=== PATIENT | male | born 1985 | race Caucasian/White ===

== ENCOUNTER 2016-07-30 04:08 | Emergency (ER) | payer OTHER ==
[2016-07-30 04:15] VITALS: TEMP 97.6
[2016-07-30] MEDS ORDERED: PROPARACAINE 0.5% OPHTH DROPS 15 ML BTL RIGHT EYE STA (04:44)
[2016-07-30] MEDS ORDERED: TOBRA-DEXAMET 0.3-0.1% OPHTH DROPS 2.5 ML BTL RIGHT EYE STA (05:14)
--- NOTE | 2016-07-30 05:16 | ED ---
ENT HPI - General Chief complaint: ENT Stated complaint: [facility] eye Time Seen by Provider: 07/30/16 04:25 Source: patient, RN notes reviewed Mode of arrival: ambulatory Limitations: no limitations - History of Present Illness Initial comments: This is a 31-year-old male with a benign history states he was working at work when he got some dust or dirt in his right eye. He states he flushed it with copious amounts of fluid he still has a feeling that there is a foreign body in it. He denies a loss of vision or blurry vision but just discomfort the foreign body sensation to his right eye. His left eye is fine he has no other complaints at this time. Patient does not wear contact lenses. MD complaint: foreign body - Related Data Home Medications Medication Instructions Recorded Confirmed No Known Home Medications [No 07/30/16 07/30/16 Known Home Medications] Allergies Allergy/AdvReac Type Severity Reaction Status Date / Time No Known Allergies Allergy Verified 07/30/16 04:15 Review of Systems ROS Statement: Those systems with pertinent positive or pertinent negative responses have been documented in the HPI. ROS Other: All systems not noted in ROS Statement are negative. Past Medical History Past Medical History: No Reported History History of Any Multi-Drug Resistant Organisms: None Reported Additional Past Surgical History / Comment(s): vasectomy Past Psychological History: No Psychological Hx Reported Smoking Status: Current every day smoker Past Alcohol Use History: None Reported Past Drug Use History: None Reported General Exam - General Exam Comments Initial Comments: This is a well-developed well-nourished awake alert oriented times 3 male Limitations: no limitations General appearance: alert, in no apparent distress Head exam: Present: atraumatic, normocephalic, normal inspection Eye exam: Present: PERRL, EOMI, conjunctival injection (Conjunctival injection on the right no gross foreign body seen however the patient is tearing the cornea appears be clear.) ENT exam: Present: normal exam, mucous membranes moist Neck exam: Present: normal inspection. Absent: tenderness, meningismus, lymphadenopathy Neurological exam: Present: alert, oriented X3, CN II-XII intact Psychiatric exam: Present: normal affect, normal mood Skin exam: Present: warm, dry, intact, normal color. Absent: rash Course Vital Signs 07/30/16 04:13 Temperature 97.6 F Pulse Rate 83 Respiratory 18 Rate Blood Pressure 140/69 O2 Sat by Pulse 99 Oximetry Procedures - Procedures Initial comment: I Did Pl., Alcaine drops in the patient's right eye to anesthetize the cornea. I then placed 4 seen and did examine under a Harris lamp. Increased uptake seen in the right upper outer quadrant at about the 10 and 11 o'clock position near the limbus. No foreign body seen at this time I did omer the lids the upper or lower lids demonstrate no foreign body seen. I then used a slit lamp to examine the eye there is the increased uptake noted at the same position anterior chamber is clear corneas clear otherwise Medical Decision Making - Medical Decision Making No further workup is indicated patient will be discharged the presentation is consistent with a corneal abrasion. Disposition Clinical Impression: Corneal abrasion, right Disposition: HOME SELF-CARE Condition: Good Instructions: Corneal Abrasion (ED) Additional Instructions: TobraDex 2 drops to the right eye 4 times a day for 3 days
[2016-07-30 06:06] VITALS: BP 117/56; PULSE 76; RESP 16
== END 2016-07-30 05:57 | disposition home or self-care (01) ==
LOC: EC 04:08
DX: S05.01XA Injury of conjunctiva and corneal abrasion without foreign body, right eye, initial encounter (principal); X58.XXXA Exposure to other specified factors, initial encounter; Y99.0 Civilian activity done for income or pay; F17.200 Nicotine dependence, unspecified, uncomplicated
CPT/HCPCS: 99283

== ENCOUNTER 2017-01-18 00:51 | Emergency (ER) | payer OTHER ==
--- NOTE | 2017-01-18 02:28 | ED ---
General Adult HPI - General Chief complaint: Extremity Injury, Upper Stated complaint: Lac-[facility] Time Seen by Provider: 01/18/17 01:03 Source: patient Mode of arrival: ambulatory - History of Present Illness Initial comments: 31-year-old male patient presents to emergency department today for evaluation of a laceration to the left forearm. 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 Patient denies any numbness or tingling to the extremity. Denies any significant pain. Is able to move all fingers. Patient denies any other injuries or issues. Patient states that his tetanus was updated last year. Patient states that the cutting wheel and his work area are dirty and greasy. - Related Data Previous Rx's Medication Instructions Recorded Cephalexin [Keflex] 500 mg PO Q8HR #21 cap 01/18/17 Allergies Allergy/AdvReac Type Severity Reaction Status Date / Time No Known Allergies Allergy Verified 07/30/16 04:15 Review of Systems ROS Statement: Those systems with pertinent positive or pertinent negative responses have been documented in the HPI. ROS Other: All systems not noted in ROS Statement are negative. Past Medical History Past Medical History: No Reported History History of Any Multi-Drug Resistant Organisms: None Reported Additional Past Surgical History / Comment(s): vasectomy Past Psychological History: No Psychological Hx Reported Smoking Status: Current every day smoker Past Alcohol Use History: None Reported Past Drug Use History: None Reported General Exam General appearance: alert, in no apparent distress Head exam: Present: atraumatic, normocephalic, normal inspection Eye exam: Present: normal appearance, PERRL, EOMI. Absent: scleral icterus, conjunctival injection, periorbital swelling ENT exam: Present: normal exam, mucous membranes moist Neck exam: Present: normal inspection. Absent: tenderness, meningismus, lymphadenopathy Respiratory exam: Present: normal lung sounds bilaterally. Absent: respiratory distress, wheezes, rales, rhonchi, stridor Cardiovascular Exam: Present: regular rate, normal rhythm, normal heart sounds. Absent: systolic murmur, diastolic murmur, rubs, gallop, clicks Extremities exam: Present: full ROM, normal capillary refill, other (9 cm wide laceration involving the fascia noted to the dorsal aspect of the left proximal forearm. Laceration appears to spare muscle and tendon. Patient has full range of motion of his arm, elbow, wrist, and fingers. Capillary refill is less than 3 seconds. Radial pulses intact. Skin is pink warm and dry. Bleeding controlled.). Absent: normal inspection, tenderness Neurological exam: Present: alert, oriented X3, CN II-XII intact Psychiatric exam: Present: normal affect, normal mood Skin exam: Present: warm, dry, intact, normal color. Absent: rash Course Vital Signs 01/18/17 02:34 Temperature 98.2 F Pulse Rate 64 Respiratory 16 Rate Blood Pressure 116/70 O2 Sat by Pulse 97 Oximetry Procedures - Laceration Laceration #1 Consent Obtained: verbal consent Time Out Performed: Yes Indication: laceration Site: upper extremity Size (cm): 9 Description: linear Depth: simple, single layer Anesthetic Used: lidocaine 1% Anesthesia Technique: local infiltration Amount (mls): 8 Pre-repair: wound explored, irrigated extensively Type of Sutures: nylon Size of Sutures: 4-0 Number of Sutures: 13 Technique: simple, interrupted, vertical mattress, other (10 simple interrupted sutures 3 vertical mattress sutures.) Patient Tolerated Procedure: well, no complications Medical Decision Making - Medical Decision Making 31-year-old male patient presented for evaluation of laceration to his left forearm. Wound was explored, appeared to involve the fascial layer however muscle and tendon were spared. Physical exam did reveal full range of motion to elbow, wrist, hand, and fingers with no numbness, tingling, or vascular compromise. Laceration was repaired. As equipment that caused the injury and workspace was relatively dirty patient will be put on prophylactic seven-day course of Keflex. Patient instructed to follow-up with [facility] [employer] health services for any further needs reevaluation. Patient was instructed to return for suture removal in 7 days. Patient instructed to watch for signs or symptoms of infection. Patient instructed to return for any new, worsening, or concerning symptoms. Disposition Clinical Impression: Laceration of left forearm Disposition: HOME SELF-CARE Condition: Good Instructions: Care For Your Stitches (ED), Laceration (ED) Additional Instructions: Keep laceration clean and dry. Do not immerse in water such as sinks, baths, lakes, ponds, or pools. Cover with antibiotic limited to the first 24 hours. Cover laceration while at work or doing dirty jobs. Complete antibiotic prescription and full. Watch for signs or symptoms of infection including but not limited to redness, swelling, drainage of pus, fever, or chills. Follow-up with primary care physician or [facility] health services for recheck in 1-2 days. Return for any new, worsening, or concerning symptoms. Prescriptions: Cephalexin [Keflex] 500 mg PO Q8HR #21 cap Referrals: None,Stated [Primary Care Provider] - 1-2 days Time of Disposition: 02:28
[2017-01-18 02:35] VITALS: BP 116/70; PULSE 64; RESP 16; TEMP 98.2
== END 2017-01-18 02:34 | disposition home or self-care (01) ==
LOC: EC 00:51
DX: S51.812A Laceration without foreign body of left forearm, initial encounter (principal); F17.200 Nicotine dependence, unspecified, uncomplicated; W26.8XXA Contact with other sharp object(s), not elsewhere classified, initial encounter; Y93.89 Activity, other specified; Y99.0 Civilian activity done for income or pay; Y92.69 Other specified industrial and construction area as the place of occurrence of the external cause
CPT/HCPCS: 12004; 82075; 99283

== ENCOUNTER → 2017-04-29 | Outpatient (CLI) | payer OTHER ==
--- NOTE | 2017-04-29 16:56 | MR ---
EXAMINATION TYPE: MR knee LT wo con DATE OF EXAM: 04/29/2017 COMPARISON: Plain film left knee 04/14/2017 HISTORY: Lt KNEE PAIN TECHNIQUE: Multiplanar, multisequence imaging of the left knee is performed without IV contrast. Sign ificant metallic susceptibility artifact from a metallic structure near the patellar tendon is causin g limitation in this evaluation. FINDINGS: MEDIAL MENISCUS: Anterior and posterior horns are intact without tear. LATERAL MENISCUS: Anterior and posterior horns are intact without tear. CRUCIATE LIGAMENTS: Anterior cruciate ligament appears to have a complete tear with horizontally orie nted fibers. Posterior cruciate ligament appears intact COLLATERAL LIGAMENTS: The medial collateral ligament and lateral collateral ligament complex are inta ct and unremarkable. EXTENSOR MECHANISM: Distal quadriceps tendon appears normal. Patellar tendon is nondiagnostic due to metallic artifact near the inferior patellar tendon. This also limits evaluation of adjacent soft tis fernie structures and distorts portions of the anterior tibia. EFFUSION: No significant suprapatellar joint effusion. POPLITEAL CYST: No popliteal/connolly cyst. TRICOMPARTMENT SPACES: Portions of the medial and lateral knee compartments appear normal. The patell ofemoral compartment likewise appears within normal limits. CARTILAGE: Some early thinning of the articular cartilage be considered. BONE MARROW SIGNAL: No focal abnormal marrow signal is appreciated. OTHER: No additional significant abnormality is appreciated. IMPRESSION: 1. Exam is limited with significant metallic cyst artifact from a metallic foreign body in the region of the patellar tendon. 2. Findings of anterior cruciate ligament tear, likely old. 3. Some mild thinning of the medial and lateral compartment articular cartilage may be present.
== END | disposition home or self-care (01) ==
LOC: RADMRIMAIN 15:41
PROVIDERS: ATTEND Emergency Medicine
DX: S83.92XD Sprain of unspecified site of left knee, subsequent encounter (principal)